=== PATIENT | female | born 1970 | race African-American/Black ===

== ENCOUNTER 2016-06-25 19:45 | Emergency (ER) | payer OTHER ==
[2016-06-25 19:52] VITALS: BP 171/106
--- NOTE | 2016-06-25 20:12 | PHYS DOC ---
Past Medical History Past Medical History: Asthma, Hypertension Past Surgical History: Tubal ligation Alcohol Use: Rarely Drug Use: None Adult General Chief Complaint Chief Complaint: FOOT INJURY PAIN HPI HPI Patient is a 45 year old female presents emergency department stating that her grandmother fell on her left foot last night. She is complaining of ankle pain at this time. She is stating that she is having pain in the anterior part of the ankle as well as the medial part of the ankle. There is no bruising or discoloration noted. Patient was able to ambulate into the emergency department and flip-flops. Peripheral pulses are 2+ cap refill less than 2 seconds. Review of Systems Review of Systems Constitutional: Denies fever or chills [] Eyes: Denies change in visual acuity, redness, or eye pain [] HENT: Denies nasal congestion or sore throat [] Respiratory: Denies cough or shortness of breath [] Cardiovascular: No additional information not addressed in HPI [] GI: Denies abdominal pain, nausea, vomiting, bloody stools or diarrhea [] : Denies dysuria or hematuria [] Musculoskeletal: Denies back pain. right ankle pain Integument: Denies rash or skin lesions [] Neurologic: Denies headache, focal weakness or sensory changes [] Current Medications Current Medications Current Medications Medications (Trade) Dose Ordered Sig/Samra Start Time Stop Time Status Last Admin Dose Admin Ibuprofen (Motrin) 800 mg 1X ONCE 06/25/16 20:15 06/25/16 20:16 DC 06/25/16 20:30 800 MG Allergies Allergies Allergies Coded Allergies Type Severity Reaction Last Updated Verified ABEL Inhibitors Allergy Intermediate Rash 06/25/16 Yes Physical Exam Physical Exam Constitutional: Well developed, well nourished, no acute distress, non-toxic appearance. [] HENT: Normocephalic, atraumatic, bilateral external ears normal, oropharynx moist, no oral exudates, nose normal. [] Eyes: PERRLA, EOMI, conjunctiva normal, no discharge. [] Neck: Normal range of motion, no tenderness, supple, no stridor. [] Cardiovascular:Heart rate regular rhythm Lungs & Thorax: No respiratory distress noted Skin: Warm, dry, no erythema, no rash. [] Back: No tenderness Extremities: Right anterior and right medial ankle tenderness, no cyanosis, no clubbing, ROM intact, no edema. Peripheral pulses 2+ cap refill brisk less than 2 seconds. Patient is able to move toes without difficulty. She is actually able to move the ankle with no difficulty as well. No discoloration no swelling noted in the ankle area. Neurologic: Alert and oriented X 3, normal motor function, normal sensory function, no focal deficits noted. [] Psychologic: Affect normal, judgement normal, mood normal. [] Current Patient Data Vital Signs Vital Signs Date Time Temp Pulse Resp B/P Pulse Ox O2 Delivery O2 Flow Rate FiO2 06/25/16 19:52 98.3 69 18 97 Room Air 98.3 EKG EKG [] Radiology/Procedures Radiology/Procedures [] Course & Med Decision Making Course & Med Decision Making Pertinent Labs and Imaging studies reviewed. (See chart for details) X-rays of the left ankle and foot are negative for any bony abnormalities. Patient was instructed to use ibuprofen 800 mg every 8 hours with food stop taking few develop an upset stomach. Patient was also encouraged to use ice packs on 20 minutes off 20 minutes several times a day. Elevation as much as possible. Patient was provided with signs and symptoms to return back to the emergency department. She was provided with orthopedic name and number to follow up within the next 5-7 days. Patient agrees with discharge instructions treatment regimens and follow-up recommendations. [] Dragon Disclaimer Dragon Disclaimer This electronic medical record was generated, in whole or in part, using a voice recognition dictation system. Departure Departure Impression: Primary Impression: Left ankle pain Additional Impression: Left foot pain Disposition: 01 HOME, SELF-CARE Condition: STABLE Referrals: YOLANDA SOLOMON (PCP) MARGIE DEAL MD Patient Instructions: Ankle Pain, Foot Contusion Additional Instructions: Your x-rays were negative for any bony abnormalities of your ankle and foot Ice packs on 20 minutes off 20 minutes several times a day. Elevation as much as possible. Ibuprofen 800 mg every 8 hours with food stop taking few develop an upset stomach. Follow-up with orthopedic in the next 5-7 days. Return back to emergency prior signs and symptoms that become worse. Problem Qualifiers JOSELINE FLYNN APRN June 25, 2016 20:12
[2016-06-25] MEDS ORDERED: IBUPROFEN 800 MG TABLET. PO ONE (20:15)
--- NOTE | 2016-06-26 08:01 | RAD ---
Left foot, 3 views, 06/25/2016: History: Foot pain, injury No fracture or dislocation is identified. There is mild degenerative change at the first MTP joint. There is mild diffuse soft tissue swelling about the foot. IMPRESSION: No acute bony abnormality is detected. Left ankle, 3 views, 06/25/2016: No fracture or dislocation is identified. There is moderate soft tissue swelling, particularly over the medial malleolus.
== END 2016-06-25 20:55 | disposition home or self-care (01) ==
LOC: ER 19:45
DX: M25.572 Pain in left ankle and joints of left foot (principal); J45.909 Unspecified asthma, uncomplicated; I10 Essential (primary) hypertension; Z88.8 Allergy status to other drugs, medicaments and biological substances; W18.39XA Other fall on same level, initial encounter; Y93.89 Activity, other specified; Y92.89 Other specified places as the place of occurrence of the external cause; Y99.8 Other external cause status
CPT/HCPCS: 73610; 73630; 99284

== ENCOUNTER → 2017-01-12 | Outpatient (CLI) | payer OTHER ==
--- NOTE | 2017-01-12 15:31 | RAD ---
DATE: 01/12/2017. EXAM: DIGITAL SCREEN BILAT W/CAD. HISTORY: Routine mammographic screening. COMPARISON: 12/01/2014. This study was interpreted with the benefit of Computerized Aided Detection (CAD). FINDINGS: The breast parenchyma shows scattered fibroglandular densities. Breast parenchyma level B.. There are no suspicious masses, microcalcifications or architectural distortion. Scattered and coarse calcifications are benign. BI-RADS CATEGORY: 2 BENIGN FINDING(S). RECOMMENDED FOLLOW-UP: 12M 12 MONTH FOLLOW-UP. PQRS compliance statement: Patient information was entered into a reminder system with a target due date 01/12/2018 for the next mammogram. Mammography is a sensitive method for finding small breast cancers, but it does not detect them all and is not a substitute for careful clinical examination. A negative mammogram does not negate a clinically suspicious finding and should not result in delay in biopsying a clinically suspicious abnormality. "Our facility is accredited by the [employer] Mammography Program."
== END | disposition home or self-care (01) ==
LOC: MAMMO 12:36
PROVIDERS: ATTEND Family Medicine
DX: Z12.31 Encounter for screening mammogram for malignant neoplasm of breast (principal)
CPT/HCPCS: G0202; 77067

== ENCOUNTER → 2017-06-05 | Outpatient (CLI) | payer OTHER | END | disposition home or self-care (01) | LOC: RAD 12:16 | DX: R76.11 Nonspecific reaction to tuberculin skin test without active tuberculosis (principal); J98.6 Disorders of diaphragm | CPT/HCPCS: 71046 ==

== ENCOUNTER → 2018-07-22 | Outpatient (CLI) | payer OTHER ==
--- NOTE | 2018-07-22 08:45 | RAD ---
DATE: 07/22/2018 EXAM: DIGITAL SCREEN BILAT W/CAD HISTORY: Routine screening COMPARISON: 01/12/2017 This study was interpreted with the benefit of Computerized Aided Detection (CAD). Breast Density: FATTY The breast parenchyma is primarily fatty replaced. Breast parenchyma level density A. FINDINGS: No new or enlarging breast densities are seen. There are scattered benign type calcifications. No malignant type microcalcifications have developed. IMPRESSION: There is no mammographic evidence of malignancy in either breast. BI-RADS CATEGORY: 2 BENIGN FINDING(S) RECOMMENDED FOLLOW-UP: 12M 12 MONTH FOLLOW-UP PQRS compliance statement: Patient information was entered into a reminder system with a target due date for the next mammogram. Mammography is a sensitive method for finding small breast cancers, but it does not detect them all and is not a substitute for careful clinical examination. A negative mammogram does not negate a clinically suspicious finding and should not result in delay in biopsying a clinically suspicious abnormality. "Our facility is accredited by the [employer] Mammography Program."
== END | disposition home or self-care (01) ==
LOC: MAMMO 15:12
PROVIDERS: ATTEND Family Medicine
DX: Z12.31 Encounter for screening mammogram for malignant neoplasm of breast (principal); N64.89 Other specified disorders of breast
CPT/HCPCS: 77067

== ENCOUNTER → 2018-09-10 | Outpatient (CLI) | payer OTHER ==
--- NOTE | 2018-09-10 12:52 | RAD ---
PROCEDURE: CHEST PA LATERAL CLINICAL INDICATION: Positive TB skin test. History of bronchitis. COMPARISON: 06/05/2017 FINDINGS: No pneumothorax identified. Cardiac and mediastinal contours unremarkable. No pulmonary consolidation or acute airspace disease. No acute osseous abnormalities identified. IMPRESSION: No pulmonary consolidation or acute airspace disease. Electronically signed by: Mat Patel DO (09/10/2018 12:48 PM) [facility]
== END | disposition home or self-care (01) ==
LOC: RAD 10:31
PROVIDERS: ATTEND Family Medicine
DX: R76.11 Nonspecific reaction to tuberculin skin test without active tuberculosis (principal)
CPT/HCPCS: 71046